=== PATIENT | male | born 1975 | race Caucasian/White ===

== ENCOUNTER 2020-07-19 16:18 | Observation (INO) | payer OTHER ==
--- NOTE | 2020-07-19 17:50 | PDOC.HHP ---
Hospitalist HPI - History of Present Illness cough History of Present Illness: PCP: Radha Cisneros Patient is a 45-year-old male past medical history significant for cough, diabetes, and atherosclerotic disease. Patient presents to the ER today for cough that has had for the past 2 years. He states that he has had a cough at nighttime more recently and then he had congestion that began today. Patient describes it as a dry cough. Denies any fevers. He also has a chest tightness that is dull in nature, he describes it as a aching feeling. He also complains of abdominal pain associated with the cough. He does endorse dyspnea on exertion and states that his symptoms are relieved by nothing. Patient states that he had a recent heart cath with Dr. Gutierrez and it showed 4 vessel disease. He also states that he has had a recent stress test and echo, he states his EF may be 55% but he is unsure. Patient denies sick contacts, abdominal discomfort other than muscular from the cough, diarrhea, fever. He does endorse myalgias. ED Course: VITAL SIGNS Norma Jul 19, 2020 16:27 CLAUDETTE Robledo Rachel BP: 144/109 (Sitting), MAP: 120, Pulse: 108, Resp: 16 (Non-Labored), Temp: 98.3 (Oral), Pain: 0, O2 sat: 95 on (Room Air), Time: 07/19/2020 16:27. AMBULANCE [facility] Jul 19, 2020 16:03 CLAUDETTE Robledo Rachel Patient was initially seen in the [place] ER with a completed lab work, medication administration, EKG, and chest x-ray. He was given 10 units of regular insulin as his blood sugar was over 500. He states it is not normally as high but he has been on steroids prescribed by his PCP. He was also given 1 L of normal saline and ceftriaxone 2 g. He was then transferred to the [place] ER. In the [place] ER he had aspirin 324 mg and 1 L normal saline administered. Hospitalist ROS - Review of Systems Constitutional: reports: malaise Respiratory: reports: cough, SOB with excertion Cardiovascular: reports: chest pain Gastrointestinal: reports: abdominal pain (from cough) All other systems reviewed; all pertinent +/- noted in HPI/Subj - Medication Medications: NKDA Current Medications: metFORMIN Norma Jul 19, 2020 17:07 CLAUDETTE Robledo Rachel tablet : Strength - 500 mg : ORAL Patient Dose: 1 tab(s) Oral 2 times a day. glyBURIDE [facility] Jul 19, 2020 17:08 CLAUDETTE Robledo Rachel tablet : Strength - 2.5 mg : ORAL Patient Dose: 1 tab(s) Oral once a day. predniSONE [facility] Jul 19, 2020 17:09 CLAUDETTE Robledo Rachel tablet : Strength - 5 mg : ORAL Patient Dose: 1 tab(s) Oral once a day Hospitalist History - Past Medical History Source: patient Cardiac: reports: CAD Endocrine: reports: Diabetes - Past Surgical History Past Surgical History: reports: no pertinent history - Family History Family History: reports: no pertinent history - Social History Smoking Status: Never smoker Alcohol: reports: None Drugs: reports: none Living Situation: Alone - Exam General Appearance: NAD, awake alert ENT: normocephalic atraumatic, moist mucosa Heart: RRR, no murmur, no gallops, no rubs, normal peripheral pulses Respiratory: no rales, no ronchi, normal chest expansion, wheezes Gastrointestinal: soft, non-tender, non-distended, normal bowel sounds Psychiatric: normal affect, normal behavior Hospitalist Results - Labs Lab results: Laboratory Tests 07/19/20 07/19/20 07/19/20 13:12 13:12 13:12 WBC D-Dimer Sodium Potassium Chloride BUN Creatinine Estimated GFR (MDRD) Glucose POC Glucose CK-MB (CK-2) 6.1 Troponin I 0.018 B-Natriuretic Peptide Less than 10.0 TSH 3rd Generation 07/19/20 07/19/20 07/19/20 13:12 13:12 13:12 WBC D-Dimer Less than 0.27 L Sodium 136 Potassium 4.6 Chloride 97 L BUN 18 Creatinine 1.38 H Estimated GFR (MDRD) 56 Glucose 522 H POC Glucose CK-MB (CK-2) Troponin I B-Natriuretic Peptide TSH 3rd Generation 0.5800 07/19/20 07/19/20 13:12 14:40 WBC 11.8 H D-Dimer Sodium Potassium Chloride BUN Creatinine Estimated GFR (MDRD) Glucose POC Glucose 295 H CK-MB (CK-2) Troponin I B-Natriuretic Peptide TSH 3rd Generation - EKG Interpretation EKG: Sinus tachycardia 110bpm - Radiology Interpretation Chest x-ray Status: report reviewed by me Additional Comment: No acute cardiopulmonary process. Hospitalist H&P A/P - Problem (1) Atypical chest pain Code(s): R07.89 - OTHER CHEST PAIN Status: Acute (2) Bronchitis Code(s): J40 - BRONCHITIS, NOT SPECIFIED ACUTE OR CHRONIC Status: Acute (3) Diabetes mellitus, type 2 Status: Chronic Qualifiers: Diabetes mellitus fci insulin use: with fci use - Plan Plan: Atypical chest pain, history of severe CAD BNP Continue to trend troponins Monitor on telemetry Vital signs every 4 hour Patient has appoint with Dr. Gutierrez next week to discuss plan regarding severe 4 vessel disease, may need to consult cardiology during hospital stay if pain is thought to be cardiac versus from his persistent cough Bronchitis PRN antitussives available Continue to monitor vital signs including O2 saturation every 4 hours, patient had periods of hypoxia in the ER Patient has been told that he has pneumonia, no evidence in the report on his chest x-ray and did not find this stated in any of his ER records Hyperglycemia Restart home medications Monitor Accu-Cheks AC at bedtime SSI GI and VTE prophylaxis in place CODE STATUS: Full Surrogate decision maker is his mother Patient was discussed with Dr. Gonzáles
[2020-07-19] MEDS ORDERED: Aspirin Chewable 81 MG TAB ONE (18:08)
[2020-07-19 19:24] LABS: SARS-CoV-2 NAA Rapid Test Not Detected (NotDetected)
[2020-07-19] MEDS ORDERED: cefTRIAXone\\ROCEPHIN 1 GM in Sodium Chloride 0.9% 100 ML IVPB SCH (21:00)
[2020-07-19 21:30] VITALS: BMI 28.0
[2020-07-19] MEDS ORDERED: Acetaminophen 325 MG TAB PO PRN (23:41)
[2020-07-19] MEDS ORDERED: Dextrose 5% in Water 1,000 ML IV PRN (23:41)
[2020-07-19] MEDS ORDERED: Dextrose 50% Abboject 50 ML SYRINGE SLOW IVP PRN (23:41)
[2020-07-19] MEDS ORDERED: Guaifenesin DM 100-10/5 ML UDCUP PO PRN (23:41)
[2020-07-19] MEDS ORDERED: HumaLOG 300 UNITS/3 ML VIAL SC PRN (23:53)
[2020-07-20] MEDS ORDERED: Benzonatate 100 MG CAP PO PRN (00:05)
[2020-07-20 00:50] LABS: Troponin I 0.017 ng/mL (< 0.028)
[2020-07-20] MEDS ORDERED: Insulin Glargine 10 UNITS in Pre-Filled Syringe 1 EACH SC SCH ×2 (01:00→21:00)
[2020-07-20] MEDS: HumaLOG 300 UNITS/3 ML VIAL SC PRN ×2 (04:36→11:43)
[2020-07-20 04:56] LABS: #Basophils 0.1 thou/uL (0.0-0.2); #Eosinphils 0.7 thou/uL (0.0-0.7); #Lymphocytes 2.8 thou/uL (1.20-3.40); #Monocytes 0.9 thou/uL (0.11-0.59); %Basophils 1.5 % (0.0-1.0); %Eosinophils 7.2 % (0.0-10.0); %Lymphocytes 29.2 % (21.0-51.0); %Monocytes 9.7 % (0.0-10.0); %Neutrophils 52.4 % (42.0-75.0); Hemoglobin 15.6 g/dL (14.0-18.0); Mean Corpuscular Hemoglobin 31.3 pg (27.0-31.0); Mean Corpuscular Volume 89.4 fL (78.0-98.0); Mean Platelet Volume 7.9 fL (7.4-10.4); Platelet Count 233 thou/uL (130-400); RBC Distribution Width 12.1 % (11.5-14.5); Red Blood Cell (RBC) Count 4.98 mill/uL (4.70-6.10); White Blood Cell (WBC) Count 9.5 thou/uL (4.8-10.8)
[2020-07-20 05:11] LABS: Anion Gap 10 mmol/L (10-20); BUN (Urea Nitrogen) 12 mg/dL (8.9-20.6); Calc. Creatinine Clearance 127 mL/min (70-130); Calcium 8.2 mg/dL (7.8-10.44); Carbon Dioxide 26 mmol/L (22-29); Chloride 105 mmol/L (98-107); Estimated GFR-MDRD 88; Glucose 272 mg/dL (70-105); Potassium 3.5 mmol/L (3.5-5.1); Sodium 137 mmol/L (136-145)
[2020-07-20] MEDS ORDERED: metFORMIN 500 MG TAB PO SCH (08:00)
[2020-07-20] MEDS ORDERED: Famotidine 20 MG TAB PO SCH (09:00)
[2020-07-20] MEDS ORDERED: cefTRIAXone\\ROCEPHIN 2 GM in Sodium Chloride 0.9% 100 ML IVPB SCH (14:00)
[2020-07-20 15:16] VITALS: BP 141/81; TEMP 98.2
[2020-07-20] MEDS ORDERED: Non-Formulary Item 1 EACH (Promethazine Hcl/Codeine [Prometh-Codein 6.25-10 Mg/5 Ml] 5 ML PO PRN (16:29)
[2020-07-20] MEDS ORDERED: Non-Formulary Item 1 EACH (Ipratropium/Albuterol Sulfate [Combivent Respimat] 120 PUFF In INH PRN (16:29)
[2020-07-20] MEDS ORDERED: Non-Formulary Item 1 EACH (Budesonide-Formoterol [Symbicort 160-4.5] 160 MG/4.5 MG Aer) INH PRN (16:29)
[2020-07-20] MEDS ORDERED: glyBURIDE 5 MG TAB PO SCH (21:00)
[2020-07-20] MEDS ORDERED: Atorvastatin Calcium 20 MG TAB PO SCH (21:00)
[2020-07-20] MEDS ORDERED: Non-Formulary Item 1 EACH (Insulin Detemir [Levemir Flextouch] 100 UNIT/ML Insuln.Pen) SC SCH (21:00)
[2020-07-20] MEDS ORDERED: Aspirin 81 mg Enteric Coated Tablet PO SCH (21:00)
--- NOTE | 2020-07-21 01:27 | DIS ---
DATE OF ADMISSION: 07/19/2020 DATE OF DISCHARGE: 07/20/2020 DISCHARGE DIAGNOSES: 1. Atypical chest pain. 2. Coronary artery disease, chronic and stable. 3. Seasonal allergies with bronchitis. 4. Hyperglycemia secondary to the steroids. 5. Diabetes mellitus type 2, insulin requiring. CONSULTATIONS: None. PERTINENT LABORATORY AND X-RAY FINDINGS: Troponin I negative x3. BNP 12.8. CBC within normal limits. COVID-19 PCR not detected, 07/19/2020. Portable chest x-ray dated, 07/19/2020, showed no acute cardiopulmonary process. HOSPITAL COURSE: The patient was observed on the telemetry unit after initially presenting with cough and nasal congestion with associated chest pain. The patient underwent serial cardiac biomarkers which were negative x3. Telemetry monitoring showed a sinus mechanism without acute arrhythmia or dysrhythmia. Metabolic workup was unrevealing and patient remained clinically stable. The patient with a known history of coronary artery disease with plans for outpatient followup with his clearance coordinator for further evaluation. No current evidence to suggest acute coronary syndrome or anginal equivalent. I have examined the patient at the time of discharge and discussed followup instructions. The patient verbalized understanding and agreement and ready for discharge on 07/20/2020. DISCHARGE MEDICATIONS: 1. Enteric-coated aspirin 81 mg p.o. at bedtime. 2. Metformin 500 mg p.o. b.i.d. 3. Glyburide 5 mg p.o. at bedtime.. 4. Combivent Respimat one puff inhaled q.i.d. p.r.n. 5. Levemir 10 units subcutaneously at bedtime. 6. Lipitor 20 mg p.o. at bedtime. 7. Singulair 10 mg p.o. daily. 8. Ranexa 500 mg p.o. daily. 9. Symbicort 160/4.5 two puffs inhaled b.i.d. p.r.n. FOLLOWUP: The patient may follow up with his primary care provider, Radha Cisneros. The patient is to follow up with Dr. Gutierrez with [facility] on 07/25/2020. CONDITION ON DISCHARGE: Stable. ACTIVITY: Ad-irving. DIET: ADA and heart healthy. CODE STATUS: Full. DISPOSITION: To home, 07/20/2020. Job ID: [id number]
[2020-07-21] MEDS ORDERED: Montelukast Sodium 10 mg Tablet PO SCH (09:00)
== END 2020-07-20 17:11 | disposition home or self-care (01) ==
LOC: ERS 16:18 → 2SW 19:43
PROVIDERS: ADMIT Internal Medicine; ATTEND Internal Medicine
DX: R07.89 Other chest pain (principal); I25.10 Atherosclerotic heart disease of native coronary artery without angina pectoris; J20.9 Acute bronchitis, unspecified; J30.2 Other seasonal allergic rhinitis; T38.0X5A Adverse effect of glucocorticoids and synthetic analogues, initial encounter; E11.65 Type 2 diabetes mellitus with hyperglycemia; Z79.4 Long term (current) use of insulin; Z79.52 Long term (current) use of systemic steroids; Z79.899 Other long term (current) drug therapy; Z20.828 Contact with and (suspected) exposure to other viral communicable diseases
CPT/HCPCS: 36415; 36416; 80048; 83880; 85025; 93005; 96365; 96366; G0378; J0696; J1815; J3490; U0002

== ENCOUNTER 2023-05-15 17:55 | Inpatient (IN) | payer OTHER ==
[~2023-05-15 17:55] MED LIST: Iopamidol-370 76% 500 ML MDV (1 ML CHARGE) ONE
[2023-05-15 18:46] LABS: #Basophils 0.1 thou/uL (0.0-0.2); #Eosinphils 0.5 thou/uL (0.0-0.7); #Monocytes 1.1 thou/uL (0.11-0.59); #Neutrophils 5.2 thou/uL (1.40-6.50); %Basophils 1.5 % (0.0-1.0); %Eosinophils 5.3 % (0.0-10.0); %Monocytes 12.1 % (0.0-10.0); %Neutrophils 58.8 % (42.0-75.0); Hemoglobin 14.1 g/dL (14.0-18.0); Mean Corpuscular Volume 87.3 fl (78.0-98.0); Mean Platelet Volume 10.5 fL (7.4-10.4); Platelet Count 217 10x3/uL (130-400); RBC Distribution Width 16.3 % (11.5-14.5); Red Blood Cell (RBC) Count 5.04 mill/uL (4.70-6.10); White Blood Cell (WBC) Count 8.9 10x3/uL (4.8-10.8)
[2023-05-15 19:07] LABS: INR-International Normal Ratio 1.3
[2023-05-15 19:08] LABS: PTT 32.6 sec (22.9-36.1)
[2023-05-15 19:12] LABS: ALT (SGPT) 94 U/L (8-55); AST (SGOT) 70 U/L (5-34); Albumin 3.7 g/dL (3.5-5.0); Alkaline Phosphatase 154 U/L (40-110); Anion Gap 16 mmol/L (10-20); BUN (Urea Nitrogen) 37 mg/dL (8.9-20.6); Bilirubin, Total 1.2 mg/dL (0.2-1.2); CK (CPK) 107 U/L (30-200); Calc. Creatinine Clearance 0 mL/min (70-130); Carbon Dioxide 22 mmol/L (22-29); Chloride 99 mmol/L (98-107); Estimated GFR 75; Glucose 301 mg/dL (70-105); Potassium 4.5 mmol/L (3.5-5.1); Protein, Total 6.7 g/dL (6.0-8.3); Sodium 132 mmol/L (136-145)
[2023-05-15 21:38] LABS: CKMB 4.9 ng/mL (0-6.6)
[2023-05-15] MEDS ORDERED: Electrolyte Replacement Protocol 1 EACH IVPB PRN (21:39)
[2023-05-15] MEDS ORDERED: Ondansetron PF 4 MG/2 ML Vial IVP PRN (21:39)
[2023-05-15] MEDS ORDERED: Acetaminophen 325 MG/10.15 ML UDCUP PO PRN (21:39)
[2023-05-15] MEDS ORDERED: Senokot S 8.6-50 MG TAB PO PRN (21:43)
[2023-05-15] MEDS ORDERED: Calcium Carbonate 500 MG ChewTAB PO PRN (21:43)
[2023-05-15] MEDS ORDERED: Glucagon 1 MG/ML KIT IM PRN (21:45)
[2023-05-15] MEDS ORDERED: Dextrose 5% in Water 1,000 ML IV PRN (21:45)
[2023-05-15] MEDS ORDERED: Dextrose 50% Abboject 50 ML SYRINGE SLOW IVP PRN (21:45)
[2023-05-15] MEDS ORDERED: Ipratropium/Albuterol 3 ML NEB NEB PRN (21:47)
[2023-05-15] MEDS ORDERED: Aspirin Chewable 81 MG TAB ONE (21:55)
[2023-05-15 23:47] LABS: Troponin I Greater than 45.000 ng/mL (< 0.028)
[2023-05-16 00:31] VITALS: BMI 21.7
[2023-05-16] MEDS ORDERED: Melatonin 3 MG TAB PO SCH (02:30)
[2023-05-16 02:34] LABS: Troponin I Greater than 45.000 ng/mL (< 0.028)
[2023-05-16] MEDS: Acetaminophen 325 MG TAB PO PRN ×2 (05:57→21:04)
[2023-05-16] MEDS ORDERED: Furosemide 40 MG/4 ML VIAL SLOW IVP SCH (06:00)
[2023-05-16 06:24] LABS: ALT (SGPT) 133 U/L (8-55); AST (SGOT) 109 U/L (5-34); Albumin 3.5 g/dL (3.5-5.0); Alkaline Phosphatase 163 U/L (40-110); Anion Gap 15 mmol/L (10-20); BUN (Urea Nitrogen) 38 mg/dL (8.9-20.6); Bilirubin, Total 1.7 mg/dL (0.2-1.2); Calc. Creatinine Clearance 79 mL/min (70-130); Carbon Dioxide 20 mmol/L (22-29); Estimated GFR 82; Globulin 3.2 g/dL (2.4-3.5); Glucose 251 mg/dL (70-105); Magnesium 2.1 mg/dL (1.6-2.6); Potassium 4.1 mmol/L (3.5-5.1); Protein, Total 6.7 g/dL (6.0-8.3); Sodium 132 mmol/L (136-145)
[2023-05-16 06:33] LABS: #Basophils 0.1 thou/uL (0.0-0.2); #Eosinphils 0.7 thou/uL (0.0-0.7); #Monocytes 1.2 thou/uL (0.11-0.59); #Neutrophils 4.9 thou/uL (1.40-6.50); %Basophils 1.3 % (0.0-1.0); %Eosinophils 7.4 % (0.0-10.0); %Lymphocytes 25.1 % (21.0-51.0); %Neutrophils 52.9 % (42.0-75.0); Hematocrit 43.2 % (42.0-52.0); Mean Corpuscular HGB CONC 32.4 g/dL (32.0-36.0); Mean Corpuscular Hemoglobin 27.8 pg (27.0-31.0); Mean Corpuscular Volume 85.9 fl (78.0-98.0); Mean Platelet Volume 11.2 fL (7.4-10.4); Platelet Count 221 10x3/uL (130-400); RBC Distribution Width 16.7 % (11.5-14.5); Red Blood Cell (RBC) Count 5.03 mill/uL (4.70-6.10); White Blood Cell (WBC) Count 9.3 10x3/uL (4.8-10.8)
[2023-05-16 06:37] LABS: Chloride 101 mmol/L (98-107)
[2023-05-16] MEDS ORDERED: metFORMIN 500 MG TAB PO SCH (08:00)
[2023-05-16] MEDS: Insulin Glargine 30 UNITS/0.3 ML VIAL SC SCH ×2 (09:23→20:57)
[2023-05-16] MEDS: Clopidogrel Bisulfate 75 MG TAB PO SCH (09:24)
[2023-05-16] MEDS: Famotidine 20 MG TAB PO SCH ×2 (09:24→20:54)
[2023-05-16] MEDS: Furosemide 40 MG TAB PO SCH (09:25)
[2023-05-16] MEDS: Carvedilol 3.125 MG TAB PO SCH ×2 (09:25→17:25)
[2023-05-16] MEDS: HumaLOG 300 UNITS/3 ML VIAL SC PRN ×2 (09:26→11:18)
[2023-05-16] MEDS: Sacubitril 24MG/Valsartan 26 MG TAB PO SCH ×2 (10:30→20:54)
[2023-05-16 20:06] LABS: Amphetamine Not Detected (NotDetected); Barbiturates Screen Not Detected (NotDetected); Benzodiazepine Screen Not Detected (NotDetected); Cocaine Metabolite Screen Not Detected (NotDetected); Methadone Not Detected (NotDetected); Methamphetamine Not Detected (NotDetected); Opiate Screen Not Detected (NotDetected); Oxycodone Screen Not Detected (NotDetected); Phencyclidine (PCP) Not Detected (NotDetected); THC/Cannabinoid Screen Not Detected (NotDetected); Tricyclic Screen Not Detected (NotDetected)
[2023-05-16] MEDS: Atorvastatin Calcium 40 MG TAB PO SCH (20:54)
[2023-05-16] MEDS: Aspirin 81 mg Enteric Coated Tablet PO SCH (20:54)
[2023-05-16] MEDS ORDERED: Melatonin 3 MG TAB PO PRN (22:39)
[2023-05-17 04:15] LABS: #Basophils 0.1 thou/uL (0.0-0.2); #Eosinphils 0.9 thou/uL (0.0-0.7); #Monocytes 1.2 thou/uL (0.11-0.59); #Neutrophils 4.6 thou/uL (1.40-6.50); %Basophils 1.3 % (0.0-1.0); %Eosinophils 10.2 % (0.0-10.0); %Lymphocytes 21.7 % (21.0-51.0); %Monocytes 13.7 % (0.0-10.0); %Neutrophils 52.8 % (42.0-75.0); Hematocrit 42.9 % (42.0-52.0); Hemoglobin 13.8 g/dL (14.0-18.0); Mean Corpuscular HGB CONC 32.2 g/dL (32.0-36.0); Mean Corpuscular Hemoglobin 28.2 pg (27.0-31.0); Mean Corpuscular Volume 87.6 fl (78.0-98.0); Mean Platelet Volume 11.1 fL (7.4-10.4); Platelet Count 233 10x3/uL (130-400); RBC Distribution Width 16.4 % (11.5-14.5); White Blood Cell (WBC) Count 8.7 10x3/uL (4.8-10.8)
[2023-05-17 04:43] LABS: ALT (SGPT) 107 U/L (8-55); AST (SGOT) 63 U/L (5-34); Albumin 3.2 g/dL (3.5-5.0); Alkaline Phosphatase 158 U/L (40-110); Anion Gap 13 mmol/L (10-20); BUN (Urea Nitrogen) 44 mg/dL (8.9-20.6); Bilirubin, Total 1.3 mg/dL (0.2-1.2); Calc. Creatinine Clearance 67 mL/min (70-130); Calcium 8.6 mg/dL (7.8-10.44); Carbon Dioxide 24 mmol/L (22-29); Chloride 101 mmol/L (98-107); Estimated GFR 67; Globulin 2.9 g/dL (2.4-3.5); Glucose 245 mg/dL (70-105); Protein, Total 6.1 g/dL (6.0-8.3); Sodium 134 mmol/L (136-145)
[2023-05-17] MEDS: Acetaminophen 325 MG TAB PO PRN (05:56)
[2023-05-17] MEDS: HumaLOG 300 UNITS/3 ML VIAL SC PRN ×3 (05:57→20:57)
[2023-05-17] MEDS: Insulin Glargine 30 UNITS/0.3 ML VIAL SC SCH ×2 (08:56→20:53)
[2023-05-17] MEDS: Famotidine 20 MG TAB PO SCH ×2 (08:56→20:50)
[2023-05-17] MEDS: Clopidogrel Bisulfate 75 MG TAB PO SCH (08:56)
[2023-05-17] MEDS ORDERED: Empagliflozin 25 MG TAB PO SCH (09:30)
[2023-05-17] MEDS: Furosemide 40 MG TAB PO SCH (09:32)
[2023-05-17] MEDS: Carvedilol 3.125 MG TAB PO SCH ×2 (09:41→16:46)
[2023-05-17] MEDS ORDERED: Furosemide 20 MG/2 ML VIAL SLOW IVP SCH (14:00)
[2023-05-17] MEDS: Furosemide 20 MG TAB PO SCH (14:56)
[2023-05-17] MEDS: Atorvastatin Calcium 40 MG TAB PO SCH (20:49)
[2023-05-17] MEDS: Aspirin 81 mg Enteric Coated Tablet PO SCH (20:49)
[2023-05-17] MEDS ORDERED: Valsartan 80 MG TAB PO SCH (21:00)
[2023-05-18] MEDS: Acetaminophen 325 MG TAB PO PRN (04:41)
[2023-05-18 05:24] LABS: ALT (SGPT) 91 U/L (8-55); AST (SGOT) 47 U/L (5-34); Albumin 3.3 g/dL (3.5-5.0); Alkaline Phosphatase 167 U/L (40-110); Anion Gap 15 mmol/L (10-20); BUN (Urea Nitrogen) 31 mg/dL (8.9-20.6); Bilirubin, Total 1.1 mg/dL (0.2-1.2); Calc. Creatinine Clearance 80 mL/min (70-130); Calcium 8.6 mg/dL (7.8-10.44); Carbon Dioxide 25 mmol/L (22-29); Chloride 102 mmol/L (98-107); Estimated GFR 71; Glucose 248 mg/dL (70-105); Potassium 3.8 mmol/L (3.5-5.1); Protein, Total 6.3 g/dL (6.0-8.3); Sodium 138 mmol/L (136-145)
[2023-05-18] MEDS ORDERED: Furosemide 40 MG TAB PO SCH (07:30)
[2023-05-18] MEDS: Famotidine 20 MG TAB PO SCH ×2 (09:23→20:10)
[2023-05-18] MEDS: Clopidogrel Bisulfate 75 MG TAB PO SCH (09:24)
[2023-05-18] MEDS: Carvedilol 3.125 MG TAB PO SCH ×2 (09:25→16:35)
[2023-05-18] MEDS: Insulin Glargine 30 UNITS/0.3 ML VIAL SC SCH ×2 (09:25→20:14)
[2023-05-18] MEDS: Empagliflozin 25 MG TAB PO SCH (09:25)
[2023-05-18] MEDS: Furosemide 20 MG TAB PO SCH ×2 (09:25→12:35)
[2023-05-18] MEDS ORDERED: Furosemide 40 MG/4 ML VIAL SLOW IVP SCH (11:00)
[2023-05-18] MEDS ORDERED: Acetaminophen 650 MG/20.3 ML UDCUP PO PRN (11:16)
[2023-05-18] MEDS: HumaLOG 300 UNITS/3 ML VIAL SC PRN (12:39)
[2023-05-18] MEDS: Atorvastatin Calcium 40 MG TAB PO SCH (20:10)
[2023-05-18] MEDS: Aspirin 81 mg Enteric Coated Tablet PO SCH (20:10)
[2023-05-19 05:27] LABS: ALT (SGPT) 71 U/L (8-55); AST (SGOT) 35 U/L (5-34); Albumin 3.3 g/dL (3.5-5.0); Alkaline Phosphatase 170 U/L (40-110); Anion Gap 13 mmol/L (10-20); BUN (Urea Nitrogen) 24 mg/dL (8.9-20.6); Bilirubin, Total 0.9 mg/dL (0.2-1.2); Calc. Creatinine Clearance 89 mL/min (70-130); Calcium 8.6 mg/dL (7.8-10.44); Carbon Dioxide 27 mmol/L (22-29); Chloride 100 mmol/L (98-107); Estimated GFR 82; Glucose 262 mg/dL (70-105); Potassium 3.3 mmol/L (3.5-5.1); Protein, Total 6.3 g/dL (6.0-8.3); Sodium 137 mmol/L (136-145)
[2023-05-19] MEDS: HumaLOG 300 UNITS/3 ML VIAL SC PRN ×2 (06:22→20:52)
[2023-05-19] MEDS ORDERED: Potassium Chloride 20 MEQ TAB PO SCH (08:00)
[2023-05-19] MEDS: Famotidine 20 MG TAB PO SCH ×2 (08:57→20:51)
[2023-05-19] MEDS: Furosemide 20 MG TAB PO SCH ×2 (08:58→14:03)
[2023-05-19] MEDS: Lisinopril 2.5 MG TAB PO SCH (08:58)
[2023-05-19] MEDS: Clopidogrel Bisulfate 75 MG TAB PO SCH (08:59)
[2023-05-19] MEDS: Insulin Glargine 30 UNITS/0.3 ML VIAL SC SCH ×2 (08:59→20:51)
[2023-05-19] MEDS: Carvedilol 3.125 MG TAB PO SCH ×2 (08:59→16:46)
[2023-05-19] MEDS: Empagliflozin 25 MG TAB PO SCH (08:59)
[2023-05-19] MEDS ORDERED: TICAGRELOR 90 MG TABLET PO SCH (16:00)
[2023-05-19] MEDS: Aspirin 81 mg Enteric Coated Tablet PO SCH (20:51)
[2023-05-19] MEDS: Atorvastatin Calcium 40 MG TAB PO SCH (20:51)
[2023-05-20] MEDS ORDERED: TICAGRELOR 90 MG TABLET PO SCH (09:00)
[2023-05-20] MEDS: Famotidine 20 MG TAB PO SCH (09:08)
[2023-05-20] MEDS: Carvedilol 3.125 MG TAB PO SCH ×2 (09:08→17:02)
[2023-05-20] MEDS: Furosemide 20 MG TAB PO SCH ×2 (09:08→14:14)
[2023-05-20] MEDS: Lisinopril 2.5 MG TAB PO SCH (09:08)
[2023-05-20] MEDS: Insulin Glargine 30 UNITS/0.3 ML VIAL SC SCH (09:09)
[2023-05-20] MEDS ORDERED: Apixaban 5 MG TAB PO SCH (13:03)
[2023-05-20] MEDS: Empagliflozin 25 MG TAB PO SCH (14:14)
[2023-05-20 15:32] VITALS: BP 104/66; TEMP 97.5
== END 2023-05-20 18:10 | disposition home or self-care (01) | DRG 281 ==
LOC: ERS 17:55 → CCU 21:08 → 2NO 05-16 14:39
PROVIDERS: ADMIT Student in an Organized Health Care Education/Training Program; ATTEND Family Medicine
DX: T82.855A Stenosis of coronary artery stent, initial encounter (principal); I21.9 Acute myocardial infarction, unspecified; E87.1 Hypo-osmolality and hyponatremia; I50.22 Chronic systolic (congestive) heart failure; E11.9 Type 2 diabetes mellitus without complications; I25.10 Atherosclerotic heart disease of native coronary artery without angina pectoris; I25.5 Ischemic cardiomyopathy; F41.9 Anxiety disorder, unspecified; I95.9 Hypotension, unspecified; R77.8 Other specified abnormalities of plasma proteins; I51.3 Intracardiac thrombosis, not elsewhere classified; Z98.890 Other specified postprocedural states; Z95.5 Presence of coronary angioplasty implant and graft; Z79.84 Long term (current) use of oral hypoglycemic drugs; Z79.82 Long term (current) use of aspirin; Z79.899 Other long term (current) drug therapy
CPT/HCPCS: 36415; 36416; 71045; 71275; 80053; 80306; 82550; 82553; 83735; 83880; 84484; 85025; 85610; 85730; 93005; 93306; 96372; J1650; J1815; J1940; Q9967

== ENCOUNTER 2023-06-28 16:17 | Inpatient (IN) | payer OTHER ==
[2023-06-28 17:31] LABS: #Basophils 0.1 thou/uL (0.0-0.2); #Eosinphils 0.5 thou/uL (0.0-0.7); #Neutrophils 5.8 thou/uL (1.40-6.50); %Basophils 1.1 % (0.0-1.0); %Eosinophils 5.5 % (0.0-10.0); %Lymphocytes 17.8 % (21.0-51.0); %Monocytes 11.3 % (0.0-10.0); %Neutrophils 64.1 % (42.0-75.0); Hematocrit 45.5 % (42.0-52.0); Hemoglobin 14.4 g/dL (14.0-18.0); Mean Corpuscular HGB CONC 31.6 g/dL (32.0-36.0); Mean Corpuscular Hemoglobin 27.5 pg (27.0-31.0); Mean Corpuscular Volume 86.8 fl (78.0-98.0); Mean Platelet Volume 10.2 fL (7.4-10.4); Platelet Count 346 10x3/uL (130-400); RBC Distribution Width 16.5 % (11.5-14.5); Red Blood Cell (RBC) Count 5.24 mill/uL (4.70-6.10)
[2023-06-28 17:40] LABS: Bilirubin Negative (Negative); Blood, Urine 1+ (Negative); CAUTI Indications for Culture Fever or rigors; Clarity Clear (Clear); Glucose, Urine (Dipstick) Greater than 1000 mg/dL (Negative); Ketone, Urine Negative (Negative); Leukocyte 250 Leu/uL (Negative); Nitrite Negative (Negative); Protein, Urine (Dipstick) 100 mg/dL (Neg-Trace); Specific Gravity, Urine 1.017 (1.002-1.036); Squamous Epithelial None Seen HPF (0-3); Urobilinogen Normal mg/dL (Less than 2); WBC/HPF 21-50 HPF (0-3); pH, Urine 5.5 (5.0-9.0)
[2023-06-28 17:42] LABS: Bacteria/HPF 1+ HPF (None Seen)
[2023-06-28 17:43] LABS: Urine Culture Reflex Yes Yes
[2023-06-28 17:56] LABS: ALT (SGPT) 26 U/L (8-55); AST (SGOT) 28 U/L (5-34); Albumin 3.4 g/dL (3.5-5.0); Alkaline Phosphatase 166 U/L (40-110); Anion Gap 15 mmol/L (10-20); BUN (Urea Nitrogen) 20 mg/dL (8.9-20.6); Bilirubin, Total 1.2 mg/dL (0.2-1.2); Calc. Creatinine Clearance 0 mL/min (70-130); Calcium 8.8 mg/dL (7.8-10.44); Carbon Dioxide 25 mmol/L (22-29); Chloride 99 mmol/L (98-107); Estimated GFR 77; Globulin 3.2 g/dL (2.4-3.5); Glucose 323 mg/dL (70-105); Potassium 4.2 mmol/L (3.5-5.1); Protein, Total 6.6 g/dL (6.0-8.3); Sodium 135 mmol/L (136-145)
[2023-06-28 18:04] LABS: Troponin I 0.874 ng/mL (< 0.028)
[2023-06-28] MEDS ORDERED: Furosemide 40 MG/4 ML VIAL ONE (18:12)
[2023-06-28] MEDS ORDERED: Aspirin Chewable 81 MG TAB ONE (18:12)
[2023-06-28] MEDS ORDERED: Ondansetron PF 4 MG/2 ML Vial ONE (18:55)
[2023-06-28] MEDS ORDERED: Ondansetron ODT 4 MG TAB SL PRN (19:45)
[2023-06-28] MEDS ORDERED: Ondansetron PF 4 MG/2 ML Vial IVP PRN (19:45)
[2023-06-28] MEDS ORDERED: Acetaminophen 325 MG TAB PO PRN (19:45)
[2023-06-28] MEDS ORDERED: Furosemide 40 MG/4 ML VIAL SLOW IVP SCH (20:00)
[2023-06-28] MEDS ORDERED: Glucagon 1 MG/ML KIT IM PRN (20:03)
[2023-06-28] MEDS ORDERED: Dextrose 5% in Water 1,000 ML IV PRN (20:03)
[2023-06-28] MEDS ORDERED: Dextrose 50% Abboject 50 ML SYRINGE SLOW IVP PRN (20:03)
[2023-06-28] MEDS ORDERED: Aspirin 81 mg Enteric Coated Tablet PO SCH (21:00)
[2023-06-28] MEDS: cefTRIAXone\\ROCEPHIN 1 GM in Sodium Chloride 0.9% 100 ML IVPB SCH (21:48)
[2023-06-28 22:00] LABS: Troponin I 0.917 ng/mL (< 0.028)
[2023-06-29 02:20] LABS: Critical Call Chem Troponin I PREV HIGH; Troponin I 0.916 ng/mL (< 0.028)
[2023-06-29 04:20] LABS: #Basophils 0.1 thou/uL (0.0-0.2); #Eosinphils 0.6 thou/uL (0.0-0.7); #Monocytes 0.9 thou/uL (0.11-0.59); %Basophils 1.2 % (0.0-1.0); %Eosinophils 6.8 % (0.0-10.0); %Lymphocytes 22.4 % (21.0-51.0); %Monocytes 10.4 % (0.0-10.0); %Neutrophils 58.7 % (42.0-75.0); Hematocrit 43.2 % (42.0-52.0); Hemoglobin 13.4 g/dL (14.0-18.0); Mean Corpuscular Hemoglobin 27.2 pg (27.0-31.0); Mean Corpuscular Volume 87.8 fl (78.0-98.0); Mean Platelet Volume 10.2 fL (7.4-10.4); Platelet Count 343 10x3/uL (130-400); RBC Distribution Width 16.8 % (11.5-14.5); Red Blood Cell (RBC) Count 4.92 mill/uL (4.70-6.10); White Blood Cell (WBC) Count 8.5 10x3/uL (4.8-10.8)
[2023-06-29 04:45] LABS: ALT (SGPT) 24 U/L (8-55); AST (SGOT) 23 U/L (5-34); Albumin 3.3 g/dL (3.5-5.0); Alkaline Phosphatase 158 U/L (40-110); Anion Gap 16 mmol/L (10-20); BUN (Urea Nitrogen) 20 mg/dL (8.9-20.6); Calc. Creatinine Clearance 79 mL/min (70-130); Calcium 8.7 mg/dL (7.8-10.44); Carbon Dioxide 26 mmol/L (22-29); Chloride 96 mmol/L (98-107); Estimated GFR 66; Globulin 2.9 g/dL (2.4-3.5); Magnesium 1.8 mg/dL (1.6-2.6); Potassium 3.7 mmol/L (3.5-5.1); Protein, Total 6.2 g/dL (6.0-8.3); Sodium 134 mmol/L (136-145)
[2023-06-29 04:58] LABS: Critical Call Chem Troponin I RESULT DECREASING; Troponin I 0.852 ng/mL (< 0.028)
[2023-06-29 05:00] LABS: Glucose 425 mg/dL (70-105)
[2023-06-29] MEDS: Furosemide 40 MG/4 ML VIAL SLOW IVP SCH ×2 (05:47→14:21)
[2023-06-29] MEDS: HumaLOG 300 UNITS/3 ML VIAL SC PRN ×2 (05:47→18:21)
[2023-06-29 06:47] LABS: Troponin I 0.877 ng/mL (< 0.028)
[2023-06-29] MEDS ORDERED: Carvedilol 6.25 MG TAB PO SCH ×2 (08:00→10:00)
[2023-06-29] MEDS: Clopidogrel Bisulfate 75 MG TAB PO SCH (09:17)
[2023-06-29] MEDS: Lisinopril 2.5 MG TAB PO SCH (09:18)
[2023-06-29] MEDS: Spironolactone 25 MG TAB PO SCH (09:18)
[2023-06-29] MEDS: Empagliflozin 25 MG TAB PO SCH (09:19)
[2023-06-29] MEDS ORDERED: Apixaban 5 MG TAB PO SCH (09:45)
[2023-06-29] MEDS: Acetaminophen 325 MG TAB PO PRN (10:19)
[2023-06-29 14:41] LABS: Critical Call Chem Troponin I RESULT DECREASING; Troponin I 0.794 ng/mL (< 0.028)
[2023-06-29] MEDS ORDERED: Carvedilol 3.125 MG TAB PO SCH ×2 (17:00)
[2023-06-29] MEDS: Carvedilol 6.25 MG TAB PO SCH (17:15)
[2023-06-29] MEDS: Apixaban 5 MG TAB PO SCH (20:06)
[2023-06-29] MEDS: cefTRIAXone\\ROCEPHIN 1 GM in Sodium Chloride 0.9% 100 ML IVPB SCH (20:06)
[2023-06-29] MEDS: Aspirin 81 mg Enteric Coated Tablet PO SCH (20:07)
[2023-06-29] MEDS: Rosuvastatin 20 MG TAB PO SCH (20:07)
[2023-06-30] MEDS: Melatonin 3 MG TAB PO PRN ×2 (01:31→22:12)
[2023-06-30] MEDS: Furosemide 40 MG/4 ML VIAL SLOW IVP SCH ×2 (05:09→13:32)
[2023-06-30] MEDS: HumaLOG 300 UNITS/3 ML VIAL SC PRN ×3 (05:09→18:27)
[2023-06-30] MEDS: glipiZIDE XL 2.5 mg ER.TAB PO SCH (09:03)
[2023-06-30] MEDS: Carvedilol 6.25 MG TAB PO SCH ×2 (09:03→18:22)
[2023-06-30] MEDS: Apixaban 5 MG TAB PO SCH ×2 (09:04→22:11)
[2023-06-30] MEDS: Clopidogrel Bisulfate 75 MG TAB PO SCH (09:04)
[2023-06-30] MEDS: Empagliflozin 25 MG TAB PO SCH (09:05)
[2023-06-30] MEDS: Lisinopril 2.5 MG TAB PO SCH (09:05)
[2023-06-30] MEDS: Spironolactone 25 MG TAB PO SCH (09:06)
[2023-06-30] MEDS: DOBUTamine 500 mg/250 ml 250 ML IVPB SCH (18:21)
[2023-06-30] MEDS: Aspirin 81 mg Enteric Coated Tablet PO SCH (22:11)
[2023-06-30] MEDS: cefTRIAXone\\ROCEPHIN 1 GM in Sodium Chloride 0.9% 100 ML IVPB SCH (22:11)
[2023-06-30] MEDS: Rosuvastatin 20 MG TAB PO SCH (22:11)
[2023-06-30] MEDS: Senokot S 8.6-50 MG TAB PO SCH (22:12)
[2023-06-30] MEDS: Atorvastatin Calcium 40 MG TAB PO SCH (22:12)
[2023-07-01 05:19] LABS: #Basophils 0.1 thou/uL (0.0-0.2); #Eosinphils 0.6 thou/uL (0.0-0.7); #Monocytes 0.8 thou/uL (0.11-0.59); #Neutrophils 4.7 thou/uL (1.40-6.50); %Basophils 1.1 % (0.0-1.0); %Eosinophils 7.9 % (0.0-10.0); %Lymphocytes 21.5 % (21.0-51.0); %Monocytes 10.5 % (0.0-10.0); %Neutrophils 58.9 % (42.0-75.0); Hematocrit 41.8 % (42.0-52.0); Hemoglobin 13.2 g/dL (14.0-18.0); Mean Corpuscular HGB CONC 31.6 g/dL (32.0-36.0); Mean Corpuscular Hemoglobin 27.3 pg (27.0-31.0); Mean Corpuscular Volume 86.4 fl (78.0-98.0); Mean Platelet Volume 10.2 fL (7.4-10.4); Platelet Count 300 10x3/uL (130-400); RBC Distribution Width 16.7 % (11.5-14.5); Red Blood Cell (RBC) Count 4.84 mill/uL (4.70-6.10)
[2023-07-01] MEDS: Furosemide 40 MG/4 ML VIAL SLOW IVP SCH ×2 (05:28→13:49)
[2023-07-01 06:48] LABS: Anion Gap 14 mmol/L (10-20); BUN (Urea Nitrogen) 26 mg/dL (8.9-20.6); Calc. Creatinine Clearance 80 mL/min (70-130); Calcium 8.8 mg/dL (7.8-10.44); Carbon Dioxide 32 mmol/L (22-29); Chloride 95 mmol/L (98-107); Estimated GFR 70; Glucose 214 mg/dL (70-105); Potassium 3.4 mmol/L (3.5-5.1); Sodium 138 mmol/L (136-145)
[2023-07-01] MEDS: HumaLOG 300 UNITS/3 ML VIAL SC PRN ×2 (06:54→18:08)
[2023-07-01] MEDS ORDERED: Potassium Chloride 20 MEQ TAB PO SCH (08:45)
[2023-07-01] MEDS: Apixaban 5 MG TAB PO SCH ×2 (09:15→21:49)
[2023-07-01] MEDS: Carvedilol 6.25 MG TAB PO SCH ×2 (09:15→17:57)
[2023-07-01] MEDS: glipiZIDE XL 2.5 mg ER.TAB PO SCH (09:15)
[2023-07-01] MEDS: Senokot S 8.6-50 MG TAB PO SCH ×2 (09:16→21:50)
[2023-07-01] MEDS: Clopidogrel Bisulfate 75 MG TAB PO SCH (09:16)
[2023-07-01] MEDS: Lisinopril 2.5 MG TAB PO SCH (09:16)
[2023-07-01] MEDS: Spironolactone 25 MG TAB PO SCH (09:16)
[2023-07-01] MEDS: Empagliflozin 25 MG TAB PO SCH (09:17)
[2023-07-01] MEDS: Rosuvastatin 20 MG TAB PO SCH (21:49)
[2023-07-01] MEDS: Aspirin 81 mg Enteric Coated Tablet PO SCH (21:49)
[2023-07-01] MEDS: Atorvastatin Calcium 40 MG TAB PO SCH (21:49)
[2023-07-01] MEDS: cefTRIAXone\\ROCEPHIN 1 GM in Sodium Chloride 0.9% 100 ML IVPB SCH (21:49)
[2023-07-01] MEDS: Melatonin 3 MG TAB PO PRN (21:50)
[2023-07-01] MEDS: Acetaminophen 325 MG TAB PO PRN (21:50)
[2023-07-02 05:07] LABS: Anion Gap 14 mmol/L (10-20); BUN (Urea Nitrogen) 26 mg/dL (8.9-20.6); Calc. Creatinine Clearance 77 mL/min (70-130); Calcium 8.6 mg/dL (7.8-10.44); Carbon Dioxide 33 mmol/L (22-29); Chloride 97 mmol/L (98-107); Estimated GFR 68; Glucose 263 mg/dL (70-105); Potassium 3.5 mmol/L (3.5-5.1); Sodium 140 mmol/L (136-145)
[2023-07-02] MEDS: HumaLOG 300 UNITS/3 ML VIAL SC PRN ×3 (06:13→17:16)
[2023-07-02] MEDS: Furosemide 40 MG/4 ML VIAL SLOW IVP SCH ×2 (06:13→14:31)
[2023-07-02] MEDS: Apixaban 5 MG TAB PO SCH ×2 (08:46→20:20)
[2023-07-02] MEDS: glipiZIDE XL 2.5 mg ER.TAB PO SCH (08:46)
[2023-07-02] MEDS: Clopidogrel Bisulfate 75 MG TAB PO SCH (08:47)
[2023-07-02] MEDS: Spironolactone 25 MG TAB PO SCH (08:47)
[2023-07-02] MEDS: Lisinopril 2.5 MG TAB PO SCH (08:47)
[2023-07-02] MEDS: Senokot S 8.6-50 MG TAB PO SCH (08:47)
[2023-07-02] MEDS: Empagliflozin 25 MG TAB PO SCH (08:52)
[2023-07-02] MEDS: Carvedilol 6.25 MG TAB PO SCH ×2 (08:55→16:33)
[2023-07-02] MEDS: DOBUTamine 500 mg/250 ml 250 ML IVPB SCH (15:43)
[2023-07-02] MEDS: Milrinone Lactate/D5W 20 MG in Premix Bag 1 BAG IV SCH (18:06)
[2023-07-02] MEDS: Aspirin 81 mg Enteric Coated Tablet PO SCH (20:20)
[2023-07-02] MEDS: Rosuvastatin 20 MG TAB PO SCH (20:20)
[2023-07-02] MEDS: Atorvastatin Calcium 40 MG TAB PO SCH (20:20)
[2023-07-02] MEDS: Melatonin 3 MG TAB PO PRN (20:20)
[2023-07-03] MEDS: Senokot S 8.6-50 MG TAB PO SCH ×3 (00:08→20:00)
[2023-07-03] MEDS ORDERED: Ipratropium/Albuterol 3 ML NEB NEB PRN (01:51)
[2023-07-03] MEDS ORDERED: diphenhydrAMINE 50 MG/ML VIAL IVP SCH (02:15)
[2023-07-03 05:04] LABS: #Basophils 0.1 thou/uL (0.0-0.2); #Eosinphils 0.8 thou/uL (0.0-0.7); #Neutrophils 4.4 thou/uL (1.40-6.50); %Basophils 1.3 % (0.0-1.0); %Eosinophils 9.5 % (0.0-10.0); %Lymphocytes 21.2 % (21.0-51.0); %Monocytes 12.1 % (0.0-10.0); %Neutrophils 55.8 % (42.0-75.0); Hematocrit 42.6 % (42.0-52.0); Hemoglobin 13.3 g/dL (14.0-18.0); Mean Corpuscular HGB CONC 31.2 g/dL (32.0-36.0); Mean Corpuscular Hemoglobin 27.4 pg (27.0-31.0); Mean Corpuscular Volume 87.7 fl (78.0-98.0); Platelet Count 284 10x3/uL (130-400); RBC Distribution Width 16.5 % (11.5-14.5); Red Blood Cell (RBC) Count 4.86 mill/uL (4.70-6.10); White Blood Cell (WBC) Count 7.9 10x3/uL (4.8-10.8)
[2023-07-03 05:28] LABS: Anion Gap 15 mmol/L (10-20); BUN (Urea Nitrogen) 21 mg/dL (8.9-20.6); Calc. Creatinine Clearance 100 mL/min (70-130); Calcium 8.5 mg/dL (7.8-10.44); Carbon Dioxide 28 mmol/L (22-29); Chloride 99 mmol/L (98-107); Estimated GFR 90; Glucose 100 mg/dL (70-105); Magnesium 1.9 mg/dL (1.6-2.6); Potassium 3.8 mmol/L (3.5-5.1); Sodium 138 mmol/L (136-145)
[2023-07-03] MEDS: Furosemide 40 MG/4 ML VIAL SLOW IVP SCH ×2 (06:30→13:38)
[2023-07-03] MEDS: Apixaban 5 MG TAB PO SCH ×2 (08:10→20:00)
[2023-07-03] MEDS: Spironolactone 25 MG TAB PO SCH (08:11)
[2023-07-03] MEDS: Lisinopril 2.5 MG TAB PO SCH (08:11)
[2023-07-03] MEDS: Clopidogrel Bisulfate 75 MG TAB PO SCH (08:12)
[2023-07-03] MEDS: Empagliflozin 25 MG TAB PO SCH (08:12)
[2023-07-03] MEDS: glipiZIDE XL 2.5 mg ER.TAB PO SCH (08:12)
[2023-07-03] MEDS: Carvedilol 6.25 MG TAB PO SCH ×2 (08:14→17:46)
[2023-07-03] MEDS: HumaLOG 300 UNITS/3 ML VIAL SC PRN (11:49)
[2023-07-03] MEDS: DOBUTamine 500 mg/250 ml 250 ML IVPB SCH (13:37)
[2023-07-03] MEDS: Aspirin 81 mg Enteric Coated Tablet PO SCH (20:00)
[2023-07-03] MEDS: Atorvastatin Calcium 40 MG TAB PO SCH (20:00)
[2023-07-03] MEDS: Melatonin 3 MG TAB PO PRN (20:00)
[2023-07-04 05:24] LABS: Anion Gap 18 mmol/L (10-20); BUN (Urea Nitrogen) 25 mg/dL (8.9-20.6); Calc. Creatinine Clearance 76 mL/min (70-130); Carbon Dioxide 28 mmol/L (22-29); Chloride 96 mmol/L (98-107); Estimated GFR 71; Glucose 163 mg/dL (70-105); Magnesium 2.2 mg/dL (1.6-2.6); Sodium 138 mmol/L (136-145)
[2023-07-04] MEDS: Milrinone Lactate/D5W 20 MG in Premix Bag 1 BAG IV SCH (05:53)
[2023-07-04] MEDS: DOBUTamine 500 mg/250 ml 250 ML IVPB SCH (05:53)
[2023-07-04] MEDS: Furosemide 40 MG/4 ML VIAL SLOW IVP SCH ×2 (05:53→14:26)
[2023-07-04] MEDS: HumaLOG 300 UNITS/3 ML VIAL SC PRN ×4 (05:58→21:17)
[2023-07-04] MEDS: Spironolactone 25 MG TAB PO SCH (07:57)
[2023-07-04] MEDS: Carvedilol 6.25 MG TAB PO SCH ×2 (07:57→16:21)
[2023-07-04] MEDS: Empagliflozin 25 MG TAB PO SCH (07:57)
[2023-07-04] MEDS: Senokot S 8.6-50 MG TAB PO SCH ×2 (07:57→20:15)
[2023-07-04] MEDS: glipiZIDE XL 2.5 mg ER.TAB PO SCH (07:57)
[2023-07-04] MEDS: Lisinopril 2.5 MG TAB PO SCH (07:58)
[2023-07-04] MEDS: Clopidogrel Bisulfate 75 MG TAB PO SCH (07:58)
[2023-07-04] MEDS: Apixaban 5 MG TAB PO SCH ×2 (07:58→20:14)
[2023-07-04 08:49] VITALS: BMI 21.4
[2023-07-04] MEDS: Aspirin 81 mg Enteric Coated Tablet PO SCH (20:14)
[2023-07-04] MEDS: Atorvastatin Calcium 40 MG TAB PO SCH (20:14)
[2023-07-04] MEDS: Melatonin 3 MG TAB PO PRN (20:15)
[2023-07-05] MEDS: Acetaminophen 325 MG TAB PO PRN (01:47)
[2023-07-05 04:37] LABS: Anion Gap 17 mmol/L (10-20); BUN (Urea Nitrogen) 45 mg/dL (8.9-20.6); Calc. Creatinine Clearance 62 mL/min (70-130); Calcium 9.1 mg/dL (7.8-10.44); Carbon Dioxide 27 mmol/L (22-29); Chloride 96 mmol/L (98-107); Estimated GFR 62; Glucose 216 mg/dL (70-105); Potassium 4.4 mmol/L (3.5-5.1); Sodium 136 mmol/L (136-145)
[2023-07-05] MEDS: Furosemide 40 MG/4 ML VIAL SLOW IVP SCH (05:56)
[2023-07-05] MEDS: HumaLOG 300 UNITS/3 ML VIAL SC PRN ×3 (05:56→20:04)
[2023-07-05] MEDS: Spironolactone 25 MG TAB PO SCH (08:37)
[2023-07-05] MEDS: Clopidogrel Bisulfate 75 MG TAB PO SCH (08:37)
[2023-07-05] MEDS: Lisinopril 2.5 MG TAB PO SCH (08:37)
[2023-07-05] MEDS: Senokot S 8.6-50 MG TAB PO SCH ×3 (08:38→20:03)
[2023-07-05] MEDS: Empagliflozin 25 MG TAB PO SCH (08:39)
[2023-07-05] MEDS: Carvedilol 6.25 MG TAB PO SCH (08:39)
[2023-07-05] MEDS: glipiZIDE XL 2.5 mg ER.TAB PO SCH (08:39)
[2023-07-05] MEDS: Apixaban 5 MG TAB PO SCH ×2 (08:39→20:03)
[2023-07-05] MEDS ORDERED: Carvedilol 3.125 MG TAB PO SCH (09:00)
[2023-07-05] MEDS ORDERED: Carvedilol 6.25 MG TAB PO SCH (09:05)
[2023-07-05] MEDS: Milrinone Lactate/D5W 20 MG in Premix Bag 1 BAG IV SCH (16:56)
[2023-07-05] MEDS: Carvedilol 3.125 MG TAB PO SCH (16:59)
[2023-07-05] MEDS: Melatonin 3 MG TAB PO PRN (20:03)
[2023-07-05] MEDS: Aspirin 81 mg Enteric Coated Tablet PO SCH (20:03)
[2023-07-05] MEDS: Atorvastatin Calcium 40 MG TAB PO SCH (20:03)
[2023-07-06] MEDS: Acetaminophen 325 MG TAB PO PRN (00:51)
[2023-07-06 04:29] LABS: Anion Gap 17 mmol/L (10-20); BUN (Urea Nitrogen) 48 mg/dL (8.9-20.6); Calc. Creatinine Clearance 76 mL/min (70-130); Carbon Dioxide 25 mmol/L (22-29); Chloride 99 mmol/L (98-107); Estimated GFR 76; Glucose 148 mg/dL (70-105); Potassium 4.3 mmol/L (3.5-5.1); Sodium 137 mmol/L (136-145)
[2023-07-06] MEDS: HumaLOG 300 UNITS/3 ML VIAL SC PRN ×3 (06:16→17:08)
[2023-07-06] MEDS: Spironolactone 25 MG TAB PO SCH (08:44)
[2023-07-06] MEDS: Lisinopril 2.5 MG TAB PO SCH (08:45)
[2023-07-06] MEDS: Empagliflozin 25 MG TAB PO SCH (08:45)
[2023-07-06] MEDS: Carvedilol 3.125 MG TAB PO SCH ×2 (08:45→17:09)
[2023-07-06] MEDS: Furosemide 40 MG TAB PO SCH (08:45)
[2023-07-06] MEDS: Apixaban 5 MG TAB PO SCH ×2 (08:45→20:15)
[2023-07-06] MEDS: Clopidogrel Bisulfate 75 MG TAB PO SCH (08:45)
[2023-07-06] MEDS: glipiZIDE XL 2.5 mg ER.TAB PO SCH (08:45)
[2023-07-06] MEDS: Senokot S 8.6-50 MG TAB PO SCH ×2 (08:50→20:16)
[2023-07-06] MEDS: Atorvastatin Calcium 40 MG TAB PO SCH (20:15)
[2023-07-06] MEDS: Melatonin 3 MG TAB PO PRN (20:15)
[2023-07-06] MEDS: Aspirin 81 mg Enteric Coated Tablet PO SCH (20:15)
[2023-07-07 04:57] LABS: Anion Gap 18 mmol/L (10-20); BUN (Urea Nitrogen) 52 mg/dL (8.9-20.6); Calc. Creatinine Clearance 56 mL/min (70-130); Calcium 8.8 mg/dL (7.8-10.44); Carbon Dioxide 22 mmol/L (22-29); Chloride 99 mmol/L (98-107); Estimated GFR 54; Glucose 291 mg/dL (70-105); Potassium 4.4 mmol/L (3.5-5.1); Sodium 135 mmol/L (136-145)
[2023-07-07] MEDS: Milrinone Lactate/D5W 20 MG in Premix Bag 1 BAG IV SCH (05:52)
[2023-07-07] MEDS: HumaLOG 300 UNITS/3 ML VIAL SC PRN ×3 (06:04→16:58)
[2023-07-07] MEDS: glipiZIDE XL 2.5 mg ER.TAB PO SCH (09:02)
[2023-07-07] MEDS: Lisinopril 2.5 MG TAB PO SCH (09:02)
[2023-07-07] MEDS: Clopidogrel Bisulfate 75 MG TAB PO SCH (09:02)
[2023-07-07] MEDS: Spironolactone 25 MG TAB PO SCH (09:02)
[2023-07-07] MEDS: Carvedilol 3.125 MG TAB PO SCH ×2 (09:03→16:52)
[2023-07-07] MEDS: Senokot S 8.6-50 MG TAB PO SCH ×2 (09:03→20:52)
[2023-07-07] MEDS: Apixaban 5 MG TAB PO SCH ×2 (09:03→20:52)
[2023-07-07] MEDS: Empagliflozin 25 MG TAB PO SCH (09:03)
[2023-07-07] MEDS: Furosemide 40 MG TAB PO SCH (09:03)
[2023-07-07] MEDS: Aspirin 81 mg Enteric Coated Tablet PO SCH (20:52)
[2023-07-07] MEDS: Melatonin 3 MG TAB PO PRN (20:52)
[2023-07-07] MEDS: Atorvastatin Calcium 40 MG TAB PO SCH (20:52)
[2023-07-08] MEDS: HumaLOG 300 UNITS/3 ML VIAL SC PRN ×2 (07:41→16:38)
[2023-07-08] MEDS: glipiZIDE XL 2.5 mg ER.TAB PO SCH (08:36)
[2023-07-08] MEDS: Carvedilol 3.125 MG TAB PO SCH ×2 (08:36→16:24)
[2023-07-08] MEDS: Spironolactone 25 MG TAB PO SCH (08:36)
[2023-07-08] MEDS: Clopidogrel Bisulfate 75 MG TAB PO SCH (08:37)
[2023-07-08] MEDS: Apixaban 5 MG TAB PO SCH ×2 (08:37→20:28)
[2023-07-08] MEDS: Lisinopril 2.5 MG TAB PO SCH (08:37)
[2023-07-08] MEDS: Senokot S 8.6-50 MG TAB PO SCH ×2 (08:37→20:35)
[2023-07-08] MEDS: Empagliflozin 25 MG TAB PO SCH (08:37)
[2023-07-08] MEDS: Milrinone Lactate/D5W 20 MG in Premix Bag 1 BAG IV SCH (14:07)
[2023-07-08] MEDS ORDERED: Furosemide 40 MG/4 ML VIAL SLOW IVP SCH (17:30)
[2023-07-08] MEDS: Atorvastatin Calcium 40 MG TAB PO SCH (20:28)
[2023-07-08] MEDS: Aspirin 81 mg Enteric Coated Tablet PO SCH (20:28)
[2023-07-08] MEDS: Acetaminophen 325 MG TAB PO PRN (20:33)
[2023-07-08] MEDS: Melatonin 3 MG TAB PO PRN (22:32)
[2023-07-09] MEDS: Milrinone Lactate/D5W 20 MG in Premix Bag 1 BAG IV SCH ×2 (06:13→17:15)
[2023-07-09] MEDS: Clopidogrel Bisulfate 75 MG TAB PO SCH (08:56)
[2023-07-09] MEDS: Empagliflozin 25 MG TAB PO SCH (08:56)
[2023-07-09] MEDS: Senokot S 8.6-50 MG TAB PO SCH ×2 (08:57→21:19)
[2023-07-09] MEDS: Carvedilol 3.125 MG TAB PO SCH ×2 (08:57→17:15)
[2023-07-09] MEDS: Lisinopril 2.5 MG TAB PO SCH (08:57)
[2023-07-09] MEDS: Apixaban 5 MG TAB PO SCH ×2 (08:59→21:17)
[2023-07-09] MEDS: glipiZIDE XL 2.5 mg ER.TAB PO SCH (08:59)
[2023-07-09] MEDS: Spironolactone 25 MG TAB PO SCH (08:59)
[2023-07-09] MEDS ORDERED: Furosemide 40 MG/4 ML VIAL SLOW IVP SCH (09:00)
[2023-07-09 10:28] LABS: Magnesium 2.3 mg/dL (1.6-2.6); Potassium 4.7 mmol/L (3.5-5.1)
[2023-07-09] MEDS: HumaLOG 300 UNITS/3 ML VIAL SC PRN ×2 (11:56→21:20)
[2023-07-09] MEDS: Furosemide 40 MG/4 ML VIAL SLOW IVP SCH (14:27)
[2023-07-09] MEDS: Aspirin 81 mg Enteric Coated Tablet PO SCH (21:17)
[2023-07-09] MEDS: Acetaminophen 325 MG TAB PO PRN (21:17)
[2023-07-09] MEDS: Melatonin 3 MG TAB PO PRN (21:17)
[2023-07-09] MEDS: Atorvastatin Calcium 40 MG TAB PO SCH (21:17)
[2023-07-10 04:03] LABS: Anion Gap 20 mmol/L (10-20); BUN (Urea Nitrogen) 45 mg/dL (8.9-20.6); Calc. Creatinine Clearance 66 mL/min (70-130); Calcium 9.7 mg/dL (7.8-10.44); Carbon Dioxide 24 mmol/L (22-29); Chloride 95 mmol/L (98-107); Estimated GFR 60; Glucose 266 mg/dL (70-105); Potassium 4.2 mmol/L (3.5-5.1); Sodium 135 mmol/L (136-145)
[2023-07-10] MEDS: Milrinone Lactate/D5W 20 MG in Premix Bag 1 BAG IV SCH ×3 (04:09→23:11)
[2023-07-10] MEDS: HumaLOG 300 UNITS/3 ML VIAL SC PRN ×3 (06:05→17:40)
[2023-07-10] MEDS: Furosemide 40 MG/4 ML VIAL SLOW IVP SCH ×2 (06:05→15:18)
[2023-07-10] MEDS: Acetaminophen 325 MG TAB PO PRN (06:06)
[2023-07-10] MEDS: Lisinopril 2.5 MG TAB PO SCH (08:53)
[2023-07-10] MEDS: Carvedilol 3.125 MG TAB PO SCH ×2 (08:53→17:40)
[2023-07-10] MEDS: glipiZIDE XL 2.5 mg ER.TAB PO SCH (08:53)
[2023-07-10] MEDS: Clopidogrel Bisulfate 75 MG TAB PO SCH (08:53)
[2023-07-10] MEDS: Spironolactone 25 MG TAB PO SCH (08:53)
[2023-07-10] MEDS: Apixaban 5 MG TAB PO SCH ×2 (08:54→20:29)
[2023-07-10] MEDS: Senokot S 8.6-50 MG TAB PO SCH ×2 (08:54→20:29)
[2023-07-10] MEDS: Empagliflozin 25 MG TAB PO SCH (08:54)
[2023-07-10 15:36] VITALS: BP 136/79
[2023-07-10] MEDS ORDERED: Carvedilol 3.125 MG TAB PO SCH (20:00)
[2023-07-10 20:18] VITALS: TEMP 97.6
[2023-07-10] MEDS: Atorvastatin Calcium 40 MG TAB PO SCH (20:29)
[2023-07-10] MEDS: Aspirin 81 mg Enteric Coated Tablet PO SCH (20:29)
[2023-07-10 20:42] LABS: ALT (SGPT) 37 U/L (8-55); AST (SGOT) 29 U/L (5-34); Albumin 4.1 g/dL (3.5-5.0); Alkaline Phosphatase 157 U/L (40-110); Anion Gap 18 mmol/L (10-20); BUN (Urea Nitrogen) 46 mg/dL (8.9-20.6); Bilirubin, Total 0.8 mg/dL (0.2-1.2); Calc. Creatinine Clearance 61 mL/min (70-130); Calcium 9.9 mg/dL (7.8-10.44); Carbon Dioxide 25 mmol/L (22-29); Chloride 98 mmol/L (98-107); Estimated GFR 57; Globulin 3.7 g/dL (2.4-3.5); Glucose 93 mg/dL (70-105); Magnesium 2.2 mg/dL (1.6-2.6); Potassium 4.1 mmol/L (3.5-5.1); Protein, Total 7.8 g/dL (6.0-8.3); Sodium 137 mmol/L (136-145)
[2023-07-11] MEDS ORDERED: Carvedilol 6.25 MG TAB PO SCH (08:00)
== END 2023-07-10 23:40 | disposition home or self-care (01) | DRG 280 ==
LOC: ERS 16:17 → 2NO 19:49 → IMCU/EMU 07-02 17:57 → 2NO 07-06 14:30
PROVIDERS: ADMIT Internal Medicine Nephrology; ATTEND Family Medicine
DX: I11.0 Hypertensive heart disease with heart failure (principal); I50.23 Acute on chronic systolic (congestive) heart failure; I21.A1 Myocardial infarction type 2; E87.3 Alkalosis; N17.9 Acute kidney failure, unspecified; I47.20 Ventricular tachycardia, unspecified; E11.9 Type 2 diabetes mellitus without complications; M79.89 Other specified soft tissue disorders; I25.10 Atherosclerotic heart disease of native coronary artery without angina pectoris; F41.9 Anxiety disorder, unspecified; F17.220 Nicotine dependence, chewing tobacco, uncomplicated; E87.6 Hypokalemia; J44.9 Chronic obstructive pulmonary disease, unspecified; Z79.82 Long term (current) use of aspirin; Z79.899 Other long term (current) drug therapy; Z95.818 Presence of other cardiac implants and grafts; I25.2 Old myocardial infarction; Z95.5 Presence of coronary angioplasty implant and graft; Z79.02 Long term (current) use of antithrombotics/antiplatelets; I25.5 Ischemic cardiomyopathy; Z82.49 Family history of ischemic heart disease and other diseases of the circulatory system; Z80.0 Family history of malignant neoplasm of digestive organs; Z79.84 Long term (current) use of oral hypoglycemic drugs; Z79.01 Long term (current) use of anticoagulants
CPT/HCPCS: 36415; 36416; 71045; 80048; 80053; 81001; 83735; 83880; 84132; 84484; 85025; 85379; 87086; 93005; 93306; 93970; 94640; 96372; 96374; 96375; J0696; J1250; J1650; J1815; J1940; J2260; J2405; J3490; J7620

== ENCOUNTER 2023-08-14 19:57 | Inpatient (IN) | payer OTHER ==
[2023-08-14 20:29] LABS: #Basophils 0.2 thou/uL (0.0-0.2); #Eosinphils 1.7 thou/uL (0.0-0.7); %Basophils 1.5 % (0.0-1.0); %Lymphocytes 15.9 % (21.0-51.0); %Monocytes 9.7 % (0.0-10.0); %Neutrophils 56.6 % (42.0-75.0); Hematocrit 42.2 % (42.0-52.0); Hemoglobin 13.1 g/dL (14.0-18.0); Mean Corpuscular Hemoglobin 28.4 pg (27.0-31.0); Mean Corpuscular Volume 91.5 fl (78.0-98.0); Mean Platelet Volume 10.3 fL (7.4-10.4); Platelet Count 256 10x3/uL (130-400); RBC Distribution Width 17.7 % (11.5-14.5); Red Blood Cell (RBC) Count 4.61 mill/uL (4.70-6.10); White Blood Cell (WBC) Count 10.7 10x3/uL (4.8-10.8)
[2023-08-14 20:53] LABS: ALT (SGPT) 18 U/L (8-55); AST (SGOT) 24 U/L (5-34); Albumin 4.5 g/dL (3.5-5.0); Alkaline Phosphatase 122 U/L (40-110); Anion Gap 15 mmol/L (10-20); BUN (Urea Nitrogen) 13 mg/dL (8.9-20.6); Bilirubin, Total 0.8 mg/dL (0.2-1.2); Calc. Creatinine Clearance 0 mL/min (70-130); Calcium 8.9 mg/dL (7.8-10.44); Carbon Dioxide 26 mmol/L (22-29); Chloride 103 mmol/L (98-107); Estimated GFR 82; Globulin 2.3 g/dL (2.4-3.5); Glucose 176 mg/dL (70-105); Lipase 29 U/L (8-78); Potassium 4.2 mmol/L (3.5-5.1); Protein, Total 6.8 g/dL (6.0-8.3); Sodium 140 mmol/L (136-145)
[2023-08-14 21:02] LABS: Troponin I 0.527 ng/mL (< 0.028)
[2023-08-14] MEDS ORDERED: Aspirin Chewable 81 MG TAB ONE (21:13)
[2023-08-14] MEDS ORDERED: Furosemide 40 MG/4 ML VIAL ONE (22:15)
[2023-08-15 00:05] LABS: Critical Call Chem Troponin I RESULT DECREASING; Troponin I 0.504 ng/mL (< 0.028)
[2023-08-15] MEDS ORDERED: Acetaminophen 650 MG Suppository PR PRN (00:10)
[2023-08-15] MEDS ORDERED: Ondansetron PF 4 MG/2 ML Vial IVP PRN (00:10)
[2023-08-15] MEDS ORDERED: Ondansetron ODT 4 MG TAB PO PRN (00:10)
[2023-08-15 02:24] VITALS: BMI 24.7
[2023-08-15] MEDS: Melatonin 3 MG TAB PO PRN ×2 (03:17→21:01)
[2023-08-15 04:05] LABS: #Basophils 0.2 thou/uL (0.0-0.2); #Eosinphils 1.6 thou/uL (0.0-0.7); #Monocytes 1.2 thou/uL (0.11-0.59); #Neutrophils 6.4 thou/uL (1.40-6.50); %Basophils 1.7 % (0.0-1.0); %Eosinophils 13.3 % (0.0-10.0); %Monocytes 10.4 % (0.0-10.0); %Neutrophils 55.3 % (42.0-75.0); Hematocrit 39.9 % (42.0-52.0); Hemoglobin 12.4 g/dL (14.0-18.0); Mean Corpuscular HGB CONC 31.1 g/dL (32.0-36.0); Mean Corpuscular Hemoglobin 28.2 pg (27.0-31.0); Mean Corpuscular Volume 90.9 fl (78.0-98.0); Mean Platelet Volume 10.2 fL (7.4-10.4); Platelet Count 259 10x3/uL (130-400); RBC Distribution Width 17.4 % (11.5-14.5); Red Blood Cell (RBC) Count 4.39 mill/uL (4.70-6.10); White Blood Cell (WBC) Count 11.6 10x3/uL (4.8-10.8)
[2023-08-15 04:39] LABS: Anion Gap 15 mmol/L (10-20); BUN (Urea Nitrogen) 12 mg/dL (8.9-20.6); Calc. Creatinine Clearance 99 mL/min (70-130); Calcium 9.4 mg/dL (7.8-10.44); Carbon Dioxide 26 mmol/L (22-29); Chloride 102 mmol/L (98-107); Estimated GFR 95; Glucose 176 mg/dL (70-105); Potassium 3.8 mmol/L (3.5-5.1); Sodium 139 mmol/L (136-145)
[2023-08-15 04:45] LABS: Troponin I 0.531 ng/mL (< 0.028)
[2023-08-15] MEDS: Benzonatate 100 MG CAP PO PRN ×4 (04:45→22:54)
[2023-08-15] MEDS: Ipratropium/Albuterol 3 ML NEB NEB PRN ×4 (06:47→22:45)
[2023-08-15] MEDS ORDERED: Carvedilol 3.125 MG TAB PO SCH (08:00)
[2023-08-15] MEDS ORDERED: Lisinopril 2.5 MG TAB PO SCH (09:00)
[2023-08-15] MEDS ORDERED: Furosemide 40 MG/4 ML VIAL SLOW IVP SCH (09:00)
[2023-08-15] MEDS ORDERED: FLU VACC QS2023-24(6MOS UP)/PF 60 MCG/0.5 ML SYRINGE IM ONE (09:00)
[2023-08-15] MEDS: Clopidogrel Bisulfate 75 MG TAB PO SCH (09:12)
[2023-08-15] MEDS: Rosuvastatin 20 MG TAB PO SCH (09:12)
[2023-08-15] MEDS: Empagliflozin 10 MG TAB PO SCH (09:12)
[2023-08-15] MEDS: Apixaban 5 MG TAB PO SCH ×2 (09:12→21:00)
[2023-08-15] MEDS ORDERED: Potassium Chloride 10 MEQ TAB PO SCH (10:45)
[2023-08-15] MEDS ORDERED: Milrinone 20 MG in Sodium Chloride 0.9% 100 ML IVPB SCH (10:45)
[2023-08-15 10:48] LABS: Magnesium 1.7 mg/dL (1.6-2.6)
[2023-08-15] MEDS: Milrinone Lactate/D5W 20 MG in Premix 1 BAG IV SCH ×2 (11:27→16:16)
[2023-08-15] MEDS: Carvedilol 6.25 MG TAB PO SCH (16:17)
[2023-08-15] MEDS ORDERED: Magnesium 2 GM/50 ML(in water) 2 GM in Premix 1 BAG IVPB SCH (17:00)
[2023-08-15 19:33] LABS: SARS-CoV-2 NAA Rapid Test Not Detected (NotDetected)
[2023-08-15] MEDS ORDERED: Sacubitril 24MG/Valsartan 26 MG TAB PO SCH (21:00)
[2023-08-15] MEDS: Aspirin 81 mg Enteric Coated Tablet PO SCH (21:01)
[2023-08-15] MEDS: Potassium Chloride 10 MEQ TAB PO SCH (21:01)
[2023-08-15] MEDS: Acetaminophen 325 MG TAB PO PRN (21:10)
[2023-08-15] MEDS ORDERED: Ketorolac Tromethamine 30 MG/ML VIAL IVP SCH (22:30)
[2023-08-15] MEDS ORDERED: Fluticasone Propionate Nasal Spray 16 gm Bottle NASAL SCH (23:00)
[2023-08-16] MEDS: Milrinone Lactate/D5W 20 MG in Premix 1 BAG IV SCH ×2 (02:29→15:39)
[2023-08-16] MEDS: Ipratropium/Albuterol 3 ML NEB NEB PRN ×2 (02:38→07:33)
[2023-08-16 04:56] LABS: #Basophils 0.2 thou/uL (0.0-0.2); #Monocytes 1.1 thou/uL (0.11-0.59); %Basophils 1.9 % (0.0-1.0); %Eosinophils 23.4 % (0.0-10.0); %Lymphocytes 15.7 % (21.0-51.0); %Monocytes 12.4 % (0.0-10.0); %Neutrophils 46.5 % (42.0-75.0); Hematocrit 37.9 % (42.0-52.0); Hemoglobin 12.1 g/dL (14.0-18.0); Mean Corpuscular HGB CONC 31.9 g/dL (32.0-36.0); Mean Corpuscular Hemoglobin 28.1 pg (27.0-31.0); Mean Corpuscular Volume 88.1 fl (78.0-98.0); Mean Platelet Volume 10.4 fL (7.4-10.4); Platelet Count 239 10x3/uL (130-400); RBC Distribution Width 17.2 % (11.5-14.5); White Blood Cell (WBC) Count 8.6 10x3/uL (4.8-10.8)
[2023-08-16 05:21] LABS: Anion Gap 13 mmol/L (10-20); BUN (Urea Nitrogen) 16 mg/dL (8.9-20.6); Calc. Creatinine Clearance 85 mL/min (70-130); Calcium 9.4 mg/dL (7.8-10.44); Carbon Dioxide 33 mmol/L (22-29); Chloride 98 mmol/L (98-107); Estimated GFR 78; Glucose 167 mg/dL (70-105); Magnesium 2.3 mg/dL (1.6-2.6); Potassium 3.9 mmol/L (3.5-5.1); Sodium 140 mmol/L (136-145)
[2023-08-16] MEDS ORDERED: Spironolactone 25 MG TAB PO SCH (08:00)
[2023-08-16] MEDS: Acetaminophen 325 MG TAB PO PRN ×2 (08:08→20:33)
[2023-08-16] MEDS: Carvedilol 6.25 MG TAB PO SCH ×2 (08:08→17:58)
[2023-08-16] MEDS: Benzonatate 100 MG CAP PO PRN (08:08)
[2023-08-16] MEDS: Rosuvastatin 20 MG TAB PO SCH (08:09)
[2023-08-16] MEDS: Clopidogrel Bisulfate 75 MG TAB PO SCH (08:09)
[2023-08-16] MEDS: Empagliflozin 10 MG TAB PO SCH (08:09)
[2023-08-16] MEDS: Apixaban 5 MG TAB PO SCH ×2 (08:09→20:33)
[2023-08-16] MEDS: Potassium Chloride 10 MEQ TAB PO SCH ×2 (08:09→20:33)
[2023-08-16] MEDS: Furosemide 20 MG/2 ML VIAL SLOW IVP SCH ×2 (08:09→20:33)
[2023-08-16] MEDS ORDERED: Fluticasone Propionate Nasal Spray 16 gm Bottle NASAL SCH (09:00)
[2023-08-16] MEDS: Ipratropium/Albuterol 3 ML NEB NEB SCH ×4 (10:36→21:48)
[2023-08-16] MEDS: Aspirin 81 mg Enteric Coated Tablet PO SCH (20:33)
[2023-08-16] MEDS: Melatonin 3 MG TAB PO PRN (20:34)
[2023-08-16 23:49] VITALS: BP 116/69; TEMP 98.1
== END 2023-08-16 23:45 | disposition short-term general hospital (02) | DRG 282 ==
LOC: ERS 19:57 → 2NO 23:14 → OBSVTOIN 08-16 15:16
PROVIDERS: ADMIT Student in an Organized Health Care Education/Training Program; ATTEND Internal Medicine
DX: I50.23 Acute on chronic systolic (congestive) heart failure (principal); I21.A1 Myocardial infarction type 2; J06.9 Acute upper respiratory infection, unspecified; E11.9 Type 2 diabetes mellitus without complications; I25.10 Atherosclerotic heart disease of native coronary artery without angina pectoris; E78.5 Hyperlipidemia, unspecified; I25.5 Ischemic cardiomyopathy; R77.8 Other specified abnormalities of plasma proteins; F41.9 Anxiety disorder, unspecified; Z79.01 Long term (current) use of anticoagulants; Z79.82 Long term (current) use of aspirin; Z82.49 Family history of ischemic heart disease and other diseases of the circulatory system; Z79.84 Long term (current) use of oral hypoglycemic drugs; Z79.899 Other long term (current) drug therapy; Z95.5 Presence of coronary angioplasty implant and graft; Z98.890 Other specified postprocedural states; Z20.822 Contact with and (suspected) exposure to COVID-19
CPT/HCPCS: 36415; 36416; 71045; 80048; 80053; 83690; 83735; 83880; 84484; 85025; 85379; 87804; 93005; 93306; 94640; 96374; 96375; 96376; G0378; J1885; J1940; J2260; J3475; J7620; U0002

== ENCOUNTER 2024-03-26 23:40 | Emergency (ER) | payer OTHER ==
[2024-03-27 00:56] LABS: #Basophils 0.08 10x3/uL (0.0-0.2); %Basophils 0.8 % (0.0-1.0); %Eosinophils 5.1 % (0.0-10.0); %Lymphocytes 20.7 % (21.0-51.0); %Monocytes 8.5 % (0.0-10.0); %Neutrophils 64.3 % (42.0-75.0); Hematocrit 40.7 % (42.0-52.0); Hemoglobin 13.1 g/dL (14.0-18.0); Mean Corpuscular HGB CONC 32.2 g/dL (32.0-36.0); Mean Corpuscular Hemoglobin 27.6 pg (27.0-31.0); Mean Corpuscular Volume 85.7 fL (78.0-98.0); Platelet Count 247 10x3/uL (130-400); RBC Distribution Width 16.7 % (11.5-14.5); Red Blood Cell (RBC) Count 4.75 mill/uL (4.70-6.10)
[2024-03-27 01:05] LABS: INR-International Normal Ratio 1.1; Prothrombin Time 14.2 sec (12.0-14.7)
[2024-03-27 01:06] LABS: PTT 30.6 sec (22.9-36.1)
[2024-03-27 01:15] LABS: ALT (SGPT) 17 U/L (8-55); AST (SGOT) 17 U/L (5-34); Albumin 3.3 g/dL (3.5-5.0); Alkaline Phosphatase 92 U/L (40-110); Anion Gap 14 mmol/L (10-20); BUN (Urea Nitrogen) 16 mg/dL (8.9-20.6); Bilirubin, Total 0.8 mg/dL (0.2-1.2); Calc. Creatinine Clearance 0 mL/min (70-130); Calcium 8.8 mg/dL (7.8-10.44); Carbon Dioxide 23 mmol/L (22-29); Chloride 104 mmol/L (98-107); Estimated GFR 77; Glucose 385 mg/dL (70-105); Potassium 4.4 mmol/L (3.5-5.1); Protein, Total 6.3 g/dL (6.0-8.3); Sodium 137 mmol/L (136-145)
[2024-03-27 01:44] LABS: Critical Call Chem Troponin I LOCASIO500 @0144; Troponin I 0.238 ng/mL (< 0.028)
[2024-03-27] MEDS ORDERED: fentaNYL 50 mcg/mL 1 mL Vial ONE ×2 (02:06→04:47)
[2024-03-27 08:49] LABS: Critical Call Chem Troponin I NUR.CT6@0846; Troponin I 0.229 ng/mL (< 0.028)
== END 2024-03-27 08:47 | disposition short-term general hospital (02) ==
LOC: ERS 23:40
DX: R07.89 Other chest pain (principal); E11.9 Type 2 diabetes mellitus without complications; F17.220 Nicotine dependence, chewing tobacco, uncomplicated
CPT/HCPCS: 36415; 36416; 71045; 80053; 83735; 83880; 84484; 85025; 85610; 85730; 93005; 96374; 96376; J3010

== ENCOUNTER 2025-09-16 06:58 | Emergency (ER) | payer SELFPAY ==
[2025-09-16 07:20] LABS: #Basophils Less than 0.03 10x3/uL (0.0-0.2); #Eosinophils Less than 0.03 10x3/uL (0.0-0.7); #Monocytes 0.65 10x3/uL (0.11-0.59); #Neutrophils 11.55 10x3/uL (1.40-6.50); %Basophils 0.2 % (0.0-1.0); %Eosinophils 0.0 % (0.0-10.0); %Lymphocytes 4.7 % (21.0-51.0); %Monocytes 5.1 % (0.0-10.0); %Neutrophils 89.6 % (42.0-75.0); Hematocrit 34.6 % (42.0-52.0); Hemoglobin 10.8 g/dL (14.0-18.0); Mean Corpuscular Hemoglobin 24.7 pg (27.0-31.0); Mean Corpuscular Volume 79.2 fL (78.0-98.0); Platelet Count 337 10x3/uL (130-400); Red Blood Cell (RBC) Count 4.37 mill/uL (4.70-6.10); White Blood Cell (WBC) Count 12.87 10x3/uL (4.8-10.8)
[2025-09-16] MEDS ORDERED: Aspirin Chewable 81 MG TAB ONE (07:43)
[2025-09-16] MEDS ORDERED: Ondansetron PF 4 MG/2 ML Vial ONE (07:43)
[2025-09-16 07:47] LABS: ALT (SGPT) 9 U/L (Less than 45); AST (SGOT) 12 U/L (11-34); Albumin 3.5 g/dL (3.1-4.5); Alkaline Phosphatase 116 U/L (40-110); Anion Gap 18 mmol/L (10-20); BUN (Urea Nitrogen) 31 mg/dL (8.9-20.6); Bilirubin, Total 0.2 mg/dL (0.3-1.2); Calc. Creatinine Clearance 0 mL/min (70-130); Calcium 8.8 mg/dL (7.8-10.44); Carbon Dioxide 22 mmol/L (22-29); Chloride 94 mmol/L (98-107); Globulin 3.0 g/dL (2.4-3.5); Glucose 782 mg/dL (70-105); Potassium 4.4 mmol/L (3.5-5.1); Sodium 130 mmol/L (136-145)
[2025-09-16] MEDS ORDERED: Heparin 5,000 UNITS/ML VIAL ONE (08:24)
[2025-09-16] MEDS ORDERED: INSULIN REGULAR IN 0.9 % NACL 100 ML ONE (08:25)
[2025-09-16] MEDS ORDERED: NS 0.9% w/ 40 MEQ KCL 1,000 ML IV SCH (08:30)
[2025-09-16 08:42] LABS: INR-International Normal Ratio 1.0; Prothrombin Time 13.7 sec (12.0-14.7)
[2025-09-16 08:43] LABS: PTT 30.3 sec (22.9-36.1)
[2025-09-16 08:52] LABS: Actual Bicarbonate (HCO3v) 24.7 mEq/L (22-28); Base Excess 0.1 mEq/L (-2.0 to +3.0); Calcium, Ionized (venous) 1.10 mmol/L (1.16-1.32); Chloride (VBG) 92 mmol/L (98-106); Hematocrit-VBG 36 % (42.0-52.0); Hemoglobin (Hb) 12.3 g/dL (13.1-17.2); Potassium (VBG) 4.62 mmol/L (3.70-5.30); Sodium 132 mmol/L (133-146)
[2025-09-16 10:02] LABS: Osmolality, Serum 321 mOsm/kg (275-295)
[2025-09-16 12:03] LABS: ALT (SGPT) 7 U/L (Less than 45); AST (SGOT) 12 U/L (11-34); Albumin 3.6 g/dL (3.1-4.5); Alkaline Phosphatase 113 U/L (40-110); Anion Gap 19 mmol/L (10-20); BUN (Urea Nitrogen) 28 mg/dL (8.9-20.6); Bilirubin, Total 0.3 mg/dL (0.3-1.2); Calc. Creatinine Clearance 0 mL/min (70-130); Calcium 9.3 mg/dL (7.8-10.44); Carbon Dioxide 25 mmol/L (22-29); Chloride 99 mmol/L (98-107); Globulin 3.1 g/dL (2.4-3.5); Glucose 324 mg/dL (70-105); Potassium 3.7 mmol/L (3.5-5.1); Sodium 139 mmol/L (136-145)
[2025-09-16] MEDS ORDERED: Iopamidol-370 76% 500 ML MDV (1 ML CHARGE) ONE (12:17)
== END 2025-09-16 13:24 | disposition short-term general hospital (02) ==
LOC: ERS 06:58
DX: I21.4 Non-ST elevation (NSTEMI) myocardial infarction (principal); I50.20 Unspecified systolic (congestive) heart failure; E11.00 Type 2 diabetes mellitus with hyperosmolarity without nonketotic hyperglycemic-hyperosmolar coma (NKHHC); I25.10 Atherosclerotic heart disease of native coronary artery without angina pectoris; Z95.5 Presence of coronary angioplasty implant and graft; Z95.810 Presence of automatic (implantable) cardiac defibrillator; Z79.82 Long term (current) use of aspirin; Z79.899 Other long term (current) drug therapy; Z79.84 Long term (current) use of oral hypoglycemic drugs; Z55.6 Problems related to health literacy
CPT/HCPCS: 36416; 71045; 71275; 74174; 80053; 82805; 83690; 83880; 83930; 84484; 85025; 85610; 85730; 93005; 96365; 96366; 96368; 96375; 96376; J1644; J1815; J2270; J2405; J3480; Q9967

== ENCOUNTER 2025-10-01 06:13 | Inpatient (IN) | payer BC ==
[2025-10-01] MEDS ORDERED: Dextrose 50% Abboject 50 ML SYRINGE SLOW IVP PRN (09:05)
[2025-10-01] MEDS ORDERED: Glucagon 1 MG/ML KIT IM PRN (09:05)
[2025-10-01] MEDS ORDERED: Albuterol 2.5 MG (3 mL) NEB NEB PRN (10:27)
[2025-10-01 10:51] LABS: Anion Gap 16 mmol/L (10-20); BUN (Urea Nitrogen) 24 mg/dL (8.9-20.6); Calc. Creatinine Clearance 0 mL/min (70-130); Calcium 9.2 mg/dL (7.8-10.44); Carbon Dioxide 28 mmol/L (22-29); Chloride 96 mmol/L (98-107); Glucose 234 mg/dL (70-105); Magnesium 2.4 mg/dL (1.6-2.6); Potassium 4.1 mmol/L (3.5-5.1); Sodium 136 mmol/L (136-145)
[2025-10-01 11:11] VITALS: BMI 24.5
[2025-10-01] MEDS: Metoprolol Succinate XL 25 MG ER.TAB PO SCH (11:30)
[2025-10-01] MEDS: Gabapentin 300 MG CAP PO SCH ×2 (11:31→14:49)
[2025-10-01] MEDS: Spironolactone 25 MG TAB PO SCH (11:32)
[2025-10-01] MEDS: Furosemide 40 MG (4 mL) VIAL SLOW IVP SCH (14:50)
[2025-10-01] MEDS: Mometasone 100 MCG/Formoterol 5 MCG 120 PUFF INHALER INH SCH (19:47)
[2025-10-01] MEDS: Acetaminophen 325 MG TAB PO PRN (21:04)
[2025-10-01] MEDS: Rosuvastatin 20 MG TAB PO SCH (21:04)
[2025-10-01] MEDS: diphenhydrAMINE 25 MG CAP PO SCH (23:02)
[2025-10-02 04:20] LABS: Anion Gap 17 mmol/L (10-20); BUN (Urea Nitrogen) 30 mg/dL (8.9-20.6); Calc. Creatinine Clearance 78 mL/min (70-130); Calcium 9.0 mg/dL (7.8-10.44); Carbon Dioxide 31 mmol/L (22-29); Chloride 94 mmol/L (98-107); Glucose 276 mg/dL (70-105); Potassium 3.8 mmol/L (3.5-5.1); Sodium 138 mmol/L (136-145)
[2025-10-02] MEDS: Metoprolol Succinate XL 25 MG ER.TAB PO SCH (09:13)
[2025-10-02] MEDS: Aspirin 81 mg Enteric Coated Tablet PO SCH (09:13)
[2025-10-02] MEDS: Spironolactone 25 MG TAB PO SCH (09:13)
[2025-10-02] MEDS: Apixaban 5 MG TAB PO SCH (20:21)
[2025-10-02] MEDS: Insulin Glargine 30 UNITS/0.3 ML VIAL SC SCH (20:22)
[2025-10-03] MEDS: Furosemide 20 MG TAB PO SCH (14:13)
[2025-10-03 15:54] VITALS: BP 100/69; TEMP 98.2
== END 2025-10-03 18:01 | disposition home or self-care (01) | DRG 293 ==
LOC: 2NO 09:45 → INTOOBSV 09:45 → OBSVTOIN 10-02 13:29
PROVIDERS: ADMIT Internal Medicine; ATTEND Hospitalist
DX: I50.23 Acute on chronic systolic (congestive) heart failure (principal); E11.9 Type 2 diabetes mellitus without complications; F41.9 Anxiety disorder, unspecified; I25.10 Atherosclerotic heart disease of native coronary artery without angina pectoris; Z95.5 Presence of coronary angioplasty implant and graft; Z95.810 Presence of automatic (implantable) cardiac defibrillator; Z79.899 Other long term (current) drug therapy; Z79.82 Long term (current) use of aspirin; Z79.4 Long term (current) use of insulin; Z79.01 Long term (current) use of anticoagulants; Z95.1 Presence of aortocoronary bypass graft; Z79.52 Long term (current) use of systemic steroids
CPT/HCPCS: 36415; 36416; 80048; 83735; 93306; 93798; 96374; 96376; G0378; J1815; J1940